=== PATIENT | female | born 1990 | race Caucasian/White ===

== ENCOUNTER → 2023-10-12 07:16 | Outpatient (REF) | payer OTHER, SELFPAY | LOC: HWRAD 07:16 | PROVIDERS: ATTENDING PHYSICIAN Internal Medicine Gastroenterology | DX: R10.13 Epigastric pain (principal) | CPT/HCPCS: 76700 ==

== ENCOUNTER → 2023-11-06 06:37 | Day surgery (SDC) | payer OTHER, SELFPAY | LOC: GI 06:37 | PROVIDERS: ATTENDING PHYSICIAN Internal Medicine Gastroenterology | DX: R10.13 Epigastric pain (principal); R68.81 Early satiety | CPT/HCPCS: 43235 ==

== ENCOUNTER → 2024-07-07 12:49 | Outpatient (REF) | payer OTHER, SELFPAY | LOC: RAD 12:49 | PROVIDERS: ATTENDING PHYSICIAN Nurse Practitioner Obstetrics & Gynecology; FAMILY PHYSICIAN Family Medicine | DX: N94.10 Unspecified dyspareunia (principal) | CPT/HCPCS: 76830; 76856 ==